=== PATIENT | female | born 1950 | race Caucasian/White ===

== ENCOUNTER 2018-10-18 11:24 | Inpatient (IN) ==
--- NOTE | 2018-10-18 13:30 | Diag Imaging Result Doc PS360 ---
EXAM: CHEST-2 VIEWS 10/18/2018 HISTORY: sob TECHNIQUE: AP upright and lateral chest COMMENT: There is alveolar opacity in both lower lobes particularly the left lower lobe. This was not the case on 10/15/2017. IMPRESSION: Pulmonary edema and/or pneumonia. Electronically signed by John Abdul 10/18/2018 1:28 PM
[2018-10-18 13:37] LABS: ESTIMATED GFR > 60
[2018-10-18 13:44] LABS: AGAP 11; ALBUMIN 2.7 g/dL (3.5-5.0); ALKALINE PHOSPHATASE 411 U/L (32-104); BUN 23 mg/dL (8-22); CALCIUM 8.8 mg/dL (8.8-10.2); CHLORIDE 101 mmol/L (98-107); COSMO 272; CREATININE 0.6 mg/dL (0.5-0.9); GLUCOSE 96 mg/dL (70-104); GOT 232 U/L (10-30); GPT 152 U/L (10-36); MAGNESIUM 1.9 mg/dL (1.5-2.7); PHOSPHORUS 2.5 mg/dL (2.7-4.5); SODIUM 134 mmol/L (136-145); TCO2 22 mmol/L (25-35); TOTAL BILIRUBIN 0.35 mg/dL (0.20-1.00); TOTAL PROTEIN 5.3 g/dL (6.3-8.3)
[2018-10-18] MEDS ORDERED: NS 1,000 ML IV ONE (14:17)
[2018-10-18] MEDS ORDERED: CALCIUM GLUCONATE IV PUSH ONE (14:19)
[2018-10-18] MEDS ORDERED: D50W SYRINGE IV ONE (14:20)
[2018-10-18] MEDS ORDERED: HUMULIN R SUBQ ONE (14:20)
[2018-10-18] MEDS ORDERED: ROCEPHIN 1 GM in NS 50 ML IV ONE (14:21)
--- NOTE | 2018-10-18 14:21 | PROVIDER DOCUMENTATION ---
HPI-Respiratory General - General Chief Complaint: Shortness of Breath Stated Complaint: WEAKNESS Time Seen by Provider: 10/18/18 12:48 Source: family Allergies/Adverse Reactions: Patient Allergies Allergy/AdvReac Type Severity Reaction Status Date / Time codeine Allergy Severe ANAPHYLAXIS Verified 10/14/17 22:19 pyrazinamide Allergy Mild HIVES Verified 10/14/17 22:19 meperidine HCl * Allergy Unknown Verified 10/14/17 22:19 [From Demerol] morphine Allergy Unknown Verified 10/14/17 22:19 pseudoephedrine HCl * AdvReac Severe AGITATION Verified 10/14/17 22:19 [From Actifed] triprolidine HCl * AdvReac Severe AGITATION Verified 10/14/17 22:19 [From Actifed] ascorbic acid AdvReac Unknown Verified 10/14/17 22:19 VITAMIN C Allergy Severe ANAPHYLAXIS Uncoded 10/14/17 22:19 Home Medications: Home Medication List Medication Instructions Recorded Confirmed Last Taken Type Abatacept [Orencia] 500 mg SQ DIRECTED 11/17/15 10/14/17 12/04/15 History Cyanocobalamin (Vitamin B-12) 1,000 mcg IJ DIRECTED 11/17/15 10/14/17 History [Cyanocobalamin Injection] Diazepam [Valium] 2 mg PO BID 11/17/15 10/14/17 12/23/15 History Flurazepam [Dalmane] 15 mg PO QHS 11/17/15 10/14/17 12/23/15 History Folic Acid 1 mg PO DAILY 11/17/15 10/14/17 12/24/15 History Gabapentin E.r. [Gralise] 300 mg PO DAILY 11/17/15 10/15/17 12/24/15 History Leucovorin Calcium 5 mg PO DIRECTED 11/17/15 10/14/17 12/21/15 History Methocarbamol [Robaxin-750] 750 mg PO Q6H PRN 11/17/15 10/14/17 12/24/15 History Methotrexate 3 tab PO DIRECTED 11/17/15 10/15/17 12/21/15 History Vit C/Vit E/Lutein/Min/[place]-3 1 each PO DAILY 11/17/15 10/14/17 12/24/15 History [Ocuvite Softgel] Vitamin E (Dl,Tocopheryl Acet) 400 unit PO BID 11/17/15 10/14/17 12/24/15 History [Vitamin E] Gabapentin 200 mg PO BID 10/15/17 10/15/17 Unknown History Montelukast [Singulair] 10 mg PO QPM 10/15/17 10/15/17 Unknown History Ondansetron Odt [Zofran 4 mg Odt] 4 mg PO Q6H PRN PRN #20 tab 10/15/17 Unknown Rx Oseltamivir [Tamiflu] 75 mg PO BID #10 cap 10/15/17 Unknown Rx Oseltamivir [Tamiflu] 75 mg PO BID #8 cap 10/16/17 Unknown Rx - History of Present Illness-Resp Nature of Presenting Problem: family reports that pt has been declining last 2 days since the last fall on Friday. she saw her pcp and given hydrocodone. reports that she has dry cough, fever intermittent, and weakness, Review of Systems - Adult - REVIEW OF SYSTEMS - ADULT Constitutional: reports: see HPI Eyes: reports: no symptoms reported Ears, Nose, Mouth & Throat: reports: no symptoms reported Cardiovascular: reports: no symptoms reported Respiratory: reports: no symptoms reported Gastrointestinal: reports: no symptoms reported Genitourinary: reports: no symptoms reported Musculoskeletal: reports: no symptoms reported Integumentary: reports: no symptoms reported Neurological: reports: no symptoms reported Psychiatric: reports: no symptoms reported Endocrine: reports: no symptoms reported Hematologic/Lymphatic: reports: no symptoms reported Allergic/Immunologic: reports: no symptoms reported All Other Systems: Reviewed and Negative Past History - Adult - PAST MEDICAL HISTORY-ADULT Review of Records: reports: Old Records Reviewed, Nursing Assessment Review, Medications Reviewed, Social history reviewed & non-contributory. Major Childhood Illnesses: reports: denies history Cardiovascular: reports: murmur Respiratory: reports: denies history Gastrointestinal: reports: GERD Obstetrical/Gynecological: reports: denies history Genitourinary: reports: kidney disease (mild chronic kidney disease), kidney stones Musculoskeletal: reports: arthritis (RA), osteoporosis Neurological: reports: denies history Endocrine/Immune: reports: anemia (iron deficiency) Other Conditions: reports: denies history Additional History: insomnia - PRIOR SURGERIES/PROCEDURES Surgical/Procedure History: reports: cholecystectomy (cystoscopy), hysterectomy , orthopedic (extremity) (R shoulder, R hip x3, L knee x3, R knee, wilver feet, ), other (R shoulder, R hip x3, L knee x3, R knee, wilver feet, cystoscopy, cataract sx) - PRIOR HOSPITALIZATIONS Prior Hospitalizations: reports: for other non-related - IMMUNIZATION STATUS Childhood Immunizations: See Nurse Assessment Flu Vaccine: See Nurse Assessment - FAMILY HISTORY Family History: reviewed, not pertinent - SOCIAL HISTORY Smoking: denies Substance Use: none/never Alcohol Use Frequency: never Living Situation: family Physical Exam-General - PHYSICAL EXAM-ADULT Initial Vital Signs Reviewed: Yes - CONSTITUTIONAL General Appearance: alert, lethargic - EYES Eyes: PERRL/EOMI, pink conjunctivae - HEAD, EARS, NOSE, MOUTH & THROAT HENMT: normocephalic/atraumatic, other (dry mucous membranes) - NECK Neck: non-tender, full range of motion - RESPIRATORY Respiratory: chest non-tender, lungs clear, crackles - CARDIOVASCULAR Cardiovascular: normal peripheral pulses, regular rate, rhythm, no edema, other (murmur) - GASTROINTESTINAL (ABDOMEN) Abdominal Exam: normal bowel sounds, non tender, soft - MUSCULOSKELETAL Back Exam: normal inspection, no CVA tenderness Extremity: normal range of motion - SKIN Integumentary: normal color, warm/dry - NEUROLOGIC Neurologic: grossly normal, no motor/sensory deficits - PSYCHIATRIC Psych/Mental Status: normal thought content, normal thought process, oriented x 3 Progress - PLAN OF CARE/RESULTS Progress/Plan/Lab Results: Vital Signs - 8 hr 10/18/18 11:33 10/18/18 12:25 10/18/18 12:29 Temperature 98.7 F Pulse Rate 110 H 96 H 95 H Respiratory Rate 18 21 18 Blood Pressure 111/60 101/58 101/58 O2 Sat by Pulse Oximetry 95 92 L 92 L Laboratory Results - last 24 hr 10/18/18 10/18/18 12:20 12:20 WBC Cancelled RBC Cancelled Hgb Cancelled Hct Cancelled MCV Cancelled MCH Cancelled MCHC Cancelled RDW Std Deviation Cancelled Plt Count Cancelled MPV Cancelled Immature Gran % (Auto) Cancelled Neut % (Auto) Cancelled Lymph % (Auto) Cancelled [place] % (Auto) Cancelled Eos % (Auto) Cancelled Baso % (Auto) Cancelled Immature Gran # (Auto) Cancelled Neut # (Auto) Cancelled Lymph # (Auto) Cancelled Pine # (Auto) Cancelled Eos # (Auto) Cancelled Baso # (Auto) Cancelled Corrected WBC (Man) Cancelled Sodium 134 L Potassium 6.0 H* Chloride 101 Carbon Dioxide 22 L Anion Gap 11 BUN 23 H Creatinine 0.6 Estimated GFR/1.73 m2 > 60 BUN/Creatinine Ratio 38 Glucose 96 Calculated Osmolality 272 Calcium 8.8 Phosphorus 2.5 L Magnesium 1.9 Total Bilirubin 0.35 AST 232 H ALT 152 H Alkaline Phosphatase 411 H Total Protein 5.3 L Albumin 2.7 L Globulin 2.6 Albumin/Globulin Ratio 1.0 Orders Category Date Time Status cxr [CHEST-2 VIEWS] [RAD] Stat Exams 10/18/18 13:04 Completed CBC WITH ELECTRONIC DIFF [HEME] Stat Lab 10/18/18 13:38 Ordered COMPREHENSIVE METABOLIC PANEL [CHEM] Stat Lab 10/18/18 12:20 Completed MAGNESIUM [CHEM] Stat Lab 10/18/18 12:20 Completed PHOSPHORUS [CHEM] Stat Lab 10/18/18 12:20 Completed 0.9% Sodium Chloride Inj [Ns] 1,000 ml Med 10/18/18 14:17 Active IV 999 mls/hr Calcium Gluconate Med 10/18/18 14:19 Discontinued 1 gm IV PUSH NOW ONE CefTRIAXONE [Rocephin] 1 gm Med 10/18/18 14:21 Discontinued 0.9% Sodium Chloride Inj [Ns] 50 ml IV NOW Dextrose 50% Syringe [D50w Syringe] Med 10/18/18 14:20 Discontinued 50 ml IV NOW ONE Insulin Human Regular [Humulin R] Med 10/18/18 14:20 Discontinued 10 unit SUBQ NOW ONE [facility] [address] [facility] [address], [place] [address] Department of Imaging Patient: JACOB MAX ADM Date: 10/18/18 MR#: [id number] : 1950 ADM Status: PRE ER Age/Sex: 68/F Room/Bed: Loc: ED Ordering Physician: Radha Guajardo MD Family Physician: Anthony Toledo MD Reason for Procedure: sob ___ Signed EXAM: CHEST-2 VIEWS 10/18/2018 HISTORY: sob TECHNIQUE: AP upright and lateral chest COMMENT: There is alveolar opacity in both lower lobes particularly the left lower lobe. This was not the case on 10/15/2017. IMPRESSION: Pulmonary edema and/or pneumonia. Electronically signed by John Abdul 10/18/2018 1:28 PM 10/18/18 1328 Interpreting Physician: John Abdul MD Dictated Date/Time: 10/18/18 1328 cc: Radha Guajardo MD; Anthony Toledo MD Result Diagrams: 10/18/18 12:20 10/18/18 12:20 - CONSULTS/PCP/HOSPITALIST Notification #1 *Consult/PCP/Hospitalist*: Dr. Lennon Time Discussed: 15:17 (hyperkalemia, PNA b/l, hypoxia) Consult Disposition: Admit Departure - Departure Date of Disposition Decision: 10/18/18 Time of Disposition Decision: 15:20 DIAGNOSIS: Pneumonia, Hyperkalemia Disposition: ADMITTED INPATIENT 09 Certified Medical Emergency: Emergent Condition: Stable Referrals and Follow-Ups: Anthony Toledo MD [Primary Care Provider] - Call for Appoint. 1-2days - Critical Care Note This patient required my direct & personal management of CC.: Yes Total Time (mins): 31 Critical Care Statement: This patient required my direct personal management to treat or rule out processes, the absence of which, could potentiallly result in sudden, clinically significant life or limb threatening deterioration. Attestation - Physician/ GLENYS Attestation Patient care was provided by Advanced Practice Provider:: No The physician spent face to face time with patient:: Yes Advanced Practice Provider documentation review:: Supervising physician onsite and consulted in the evaluation and care of this patient. The physician did have a face to face encounter with the patient.
--- NOTE | 2018-10-18 14:21 | ED EKG INTERP ---
This chart was entered by Radha Paris Scribe, acting as scribe for Radha Guajardo MD. EKG Interpretation - EKG Time of EKG reading by physician:: 11:40 EKG Read and Signed by:: Radha Guajardo (v) EKG Interpretation (*Must complete 3 of following elements*): Abnormal Rate: 106 Rhythm: sinus tachycardia [place]: normal QRS: normal Attestation - Physician/ GLENYS Attestation Patient care was provided by Advanced Practice Provider:: No The physician spent face to face time with patient:: Yes Advanced Practice Provider documentation review:: Supervising physician onsite and consulted in the evaluation and care of this patient. The physician did have a face to face encounter with the patient. This chart was documented by the indicated scribe, (Radha Paris Scribe) and accurately reflects the services I performed and decisions made by me, Radha Guajardo MD, as attested by the provider's signature.
[2018-10-18] MEDS ORDERED: LEVAQUIN 500 MG/D5W 500 MG/100 ML IVPB IV SCH ×2 (16:00→18:00)
[2018-10-18 16:11] LABS: BASO# 0.03 X1000 (0.0-0.2); BASO% 0.1 % (0.0-0.8); EOS# 0.02 X1000 (0.0-0.7); EOS% 0.1 % (0.0-10.0); HEMATOCRIT 25.3 % (37.0-47.0); HEMOGLOBIN 7.8 g/dL (12.0-16.0); IMM GRAN# 0.14 X1000 (0.0-0.04); IMM GRAN% 0.7 % (0.0-0.5); LYMPH# 0.76 X1000 (1.2-3.4); LYMPH% 3.7 % (20.5-51.1); MCH 28.3 PG (27-31); MCHC 30.8 g/dL (33-37); MCV 91.7 FL (81-99); MONO# 1.28 X1000 (0.11-0.59); MONO% 6.2 % (1.7-9.3); MPV 8.9 FL (7.4-10.4); NEUT# 18.39 X1000 (1.4-6.5); NEUT% 89.2 % (42.2-75.2); PLT 613 X1000 (130-400); RBC 2.76 XMIL (4.2-5.4); RDW 17.4 % (11.5-14.5); WBC 20.62 X1000 (4.8-10.8)
[2018-10-18] MEDS: DUONEB (A & A) INH SCH ×2 (17:21→22:22)
[2018-10-18] MEDS ORDERED: SODIUM CHLORIDE 0.9% INJ PRN (17:21)
--- NOTE | 2018-10-18 17:32 | Diag Imaging Result Doc PS360 ---
EXAM: CHEST-PORTABLE 10/18/2018 HISTORY: central line placement TECHNIQUE: AP portable at 1719 COMMENT: There is a left internal jugular central venous catheter with its tip in the superior vena cava. There is alveolar opacity in both lower lobes. This is somewhat worse in the right lower lobe than on the previous study of 10/18/2018 at 1326. IMPRESSION: Pulmonary edema and/or pneumonia. Electronically signed by John Abdul 10/18/2018 5:29 PM
[2018-10-18] MEDS ORDERED: ZOSYN 4.5 GM in NS 100 ML IV SCH (18:00)
[2018-10-18] MEDS ORDERED: NARCAN ONE (18:24)
[2018-10-18] MEDS ORDERED: LASIX IV SCH (19:00)
[2018-10-18] MEDS: LOVENOX SUBQ SCH (20:06)
--- NOTE | 2018-10-18 20:18 | HISTORY AND PHYSICAL ---
HISTORY OF PRESENT ILLNESS: Ms. Charleen Estrada is a 68-year-old lady who is followed as an outpatient by Dr. Anthony Toledo. She has a history of multiple medical problems, including severe debilitating rheumatoid arthritis on Orencia and methotrexate, chronic iron deficiency anemia, mild chronic renal insufficiency, osteoporosis and gastroesophageal reflux disease. She presented to the ER with a 3-day history of increasing shortness of breath, increasing work of breathing, hard shaking rigors, fever as high as 103 degrees, nausea vomiting and a cough productive of yellowish sputum. Her chest x-ray showed bilateral lower lobe infiltrates. The family reported that she has been more confused and disoriented and difficult to arouse at times. She has not been eating well. PAST MEDICAL HISTORY: As above. PAST SURGICAL HISTORY: Left total hip, cholecystectomy, bilateral cataract surgery. ALLERGIES: Codeine, meperidine, morphine. MEDICATIONS: Orencia 500 mg subcutaneous daily, B12 injections monthly, Valium 2 mg b.i.d., Dalmane 15 mg at bedtime p.r.n. insomnia, folic acid 1 mg daily, gabapentin 200 mg b.i.d., gabapentin ER 300 mg daily, Robaxin 750 mg q.6 hours, methotrexate 2.5 mg 3 tablets weekly, Singulair 10 mg daily. FAMILY HISTORY: Noncontributory. SOCIAL HISTORY: She is a former smoker. She does not consume alcoholic beverages. She lives at [facility] and requires full-time sitters. REVIEW OF SYSTEMS: She denies any recent weight gain or weight loss.HEENT: She wears glasses. Cardiovascular: No chest pain, palpitations or anginal equivalents. Pulmonary: See HPI. Endocrine: No polyuria, no polydipsia. No cold or heat intolerance. Gastrointestinal: See HPI. Genitourinary: No leakage of urine with coughing or laughing. Skin: No easy bruisability. Neurologic: No migraines or seizures. PHYSICAL EXAMINATION: GENERAL: This is a chronically ill-appearing 68-year-old lady in mild distress secondary to shortness of breath. VITAL SIGNS: Temperature 103, current temperature 98.7, pulse 110, respirations 21, BP 111/60. HEENT: Fundi with sharp discs and vessels. Pupils equal, round, reactive to light. Extraocular eye movements intact. TMs without bullae. NECK: Supple. No masses, JVD or bruits. CARDIOVASCULAR: Tachycardic. Regular S1, S2. LUNGS: Diminished breath sounds in the bases bilaterally. ABDOMEN: Soft, nontender, with active bowel sounds. EXTREMITIES: She has multiple deformities of her hands and upper extremities. BREASTS, GYNECOLOGIC, RECTAL: Deferred. NEUROLOGIC: She is drowsy, but wakes up to verbal stimuli. She was oriented to name and place. She did answer questions somewhat appropriately. LABS: Various laboratory studies were obtained. A CBC demonstrated white count of 20.62, hemoglobin 7.8, hematocrit 25.3 and a platelet count of 613,000. Electrolytes demonstrate the following: Sodium 134, potassium 6.0, chloride 101, BUN 23, creatinine 0.6. AST 232, ALT 152, albumin 2.7. ASSESSMENT: 1. Metabolic encephalopathy. 2. Acute respiratory failure with hypoxia secondary to gram negative pneumonia with possible sepsis. 3. Immunocompromised state secondary to rheumatoid arthritis, on immunosuppressive suppressive drugs. 4. Hyperkalemia. 5. Anemia of chronic disease. 6. Transaminitis. PLAN: 1. I will admit the patient to [facility]. Because of her immunocompromised state she will need a private room. I will treat her with supplemental O2, DuoNeb nebulizer treatments and begin broad-spectrum antibiotics, including Zosyn and Levaquin, pending blood and sputum cultures. Because of the apparent gram-negative pneumonia I am going to hold her immunosuppressive drugs, including Orencia and methotrexate. I suspect that the confusion/disorientation is due to her underlying hypoxia as well as the underlying infection. She has markedly elevated liver enzymes. I am holding the immunosuppressive drugs, including methotrexate which can cause transaminitis. I will recheck liver function tests in the morning. If her liver function tests continued to trend upward, we will probably do further studies, including an ultrasound of the abdomen to better assess the liver. 2. Hyperkalemia. She was given Kayexalate as well as sodium gluconate and insulin in the ER. We will recheck a BMP in the morning. 3. Given her comorbid conditions and clinical presentation, I believe that admission to the hospital is absolutely necessary. To attempt to treat her as an outpatient would dramatically increase the risk for adverse outcomes such as sudden . I anticipate that the patient will be in the hospital for at least 2 midnights and I will therefore place her on inpatient status. I will begin Lovenox 40 mg subcutaneous daily for DVT prophylaxis. cc: Elizabeth Lennon MD
[2018-10-18] MEDS: TYLENOL PO PRN (20:24)
[2018-10-18] MEDS: NS 1,000 ML IV SCH (20:26)
[2018-10-18] MEDS ORDERED: RESTORIL PO SCH (21:00)
--- NOTE | 2018-10-18 21:22 | OPERATIVE NOTE ---
PROCEDURE DATE: 10/18/2018 PROCEDURE: Left internal jugular vein central venous line placement with ultrasound guidance. SURGEON: Dr. Alvarado. PREOP DIAGNOSIS: Chronic obstructive pulmonary disease and poor venous access. POSTOP DIAGNOSIS: Chronic obstructive pulmonary disease and poor venous access. DESCRIPTION OF PROCEDURE: The patient is placed in gentle Trendelenburg position. We imaged the left internal jugular vein. We found it to be patent. We then prepped and draped the left side of the neck in a sterile fashion. We anesthetized the skin with 1% lidocaine. Made a small stab incision then under ultrasound guidance accessed the left internal jugular vein. We passed the guidewire without difficulty. We then dilated the tract and then passed the triple-lumen catheter to about 17 18 cm. Blood came back in each lumen spontaneously. We flushed each lumen with saline. We secured the flange to the skin with a 3-0 silk. A Biostep patch was placed at the exit site. A sterile OpSite dressing was applied. She tolerated it well. A chest x-ray was ordered. cc: MD Elizabeth Weston MD
[2018-10-18] MEDS: SINGULAIR PO SCH (22:49)
[2018-10-18] MEDS: ZOSYN 4.5 GM in NS 100 ML IV SCH (22:49)
[2018-10-18] MEDS ORDERED: NS 250 ML IV ONE (23:59)
[2018-10-19] MEDS: NS 1,000 ML IV SCH ×4 (01:09→23:18)
[2018-10-19] MEDS ORDERED: LEVOPHED 8 MG in D5 1/2 NS 250 ML IV SCH ×2 (01:30→03:45)
[2018-10-19] MEDS ORDERED: VANCOMYCIN IV PER PHARMACY MISC SCH (01:30)
[2018-10-19] MEDS ORDERED: BENADRYL PO ONE ×2 (01:35→03:36)
[2018-10-19] MEDS: ZOSYN 4.5 GM in NS 100 ML IV SCH ×2 (02:39→08:34)
[2018-10-19] MEDS: DUONEB (A & A) INH SCH ×4 (03:13→22:20)
--- NOTE | 2018-10-19 03:21 | PROGRESS NOTE ---
DATE: 10/19/2018 SUBJECTIVE: I was called to see Ms. Estrada this morning. She was admitted to [facility] with a metabolic encephalopathy secondary to acute respiratory failure with hypoxia secondary to gram-negative pneumonia with sepsis. She is an immunocompromised host as she is on multiple immunosuppressive drugs due to her underlying rheumatoid arthritis. She had a leukocytosis of 20,000. She was tachycardic and tachypneic. Her lactate was 2.3. She had been started on Levaquin and Zosyn. Her blood pressure was low. When we gave her a fluid bolus, her blood pressure came up to 88/41. OBJECTIVE: Vital Signs: Temperature 98.2 degrees, pulse 97, respirations 20, BP 88/41. CV: Tachycardic. Regular S1, S2. Lungs: Diminished breath sounds in the bases bilaterally. Abdomen: Soft, nontender, with active bowel sounds. Extremities: Without edema. ASSESSMENT AND PLAN: 1. Metabolic encephalopathy secondary to acute respiratory failure with gram- negative pneumonia in an immunocompromised host in association with sepsis. Her blood pressure is low. We did give her a fluid bolus. Given the pulmonary edema, I am reticent to give her additional fluids. We will continue broad-spectrum antibiotics including Zosyn and Levaquin. I will also bolus her with vancomycin, given a history of methicillin-resistant Staphylococcus aureus. We will transfer her to the unit where I will initiate a Levophed drip. She is mildly anemic with a hemoglobin and hematocrit of 7.5 and 25. I will type, crossmatch, and transfuse 1 unit of packed red blood cells to help with volume as well as oxygenation. 2. I called her daughter and fully updated her on her mother's condition and plan of care. She voiced understanding of my concerns and I answered all of her questions. cc: Elizabeth Lennon MD [facility]
[2018-10-19] MEDS ORDERED: MISC. PHARMACY COMMUNICATION SCH (03:45)
[2018-10-19 03:56] LABS: BASO# 0.02 X1000 (0.0-0.2); BASO% 0.1 % (0.0-0.8); HEMATOCRIT 23.2 % (37.0-47.0); HEMOGLOBIN 7.3 g/dL (12.0-16.0); IMM GRAN% 2.6 % (0.0-0.5); LYMPH# 0.68 X1000 (1.2-3.4); LYMPH% 2.9 % (20.5-51.1); MCH 28.3 PG (27-31); MCHC 31.5 g/dL (33-37); MCV 89.9 FL (81-99); MONO# 1.81 X1000 (0.11-0.59); MONO% 7.8 % (1.7-9.3); MPV 9.1 FL (7.4-10.4); NEUT# 20.11 X1000 (1.4-6.5); NEUT% 86.6 % (42.2-75.2); PLT 610 X1000 (130-400); RBC 2.58 XMIL (4.2-5.4); WBC 23.22 X1000 (4.8-10.8)
[2018-10-19] MEDS ORDERED: VANCOMYCIN 1,450 MG in NS 250 ML IV ONE (04:00)
[2018-10-19 04:18] LABS: AGAP 12; ALB/GLOB RATIO 0.8; ALBUMIN 2.4 g/dL (3.5-5.0); ALKALINE PHOSPHATASE 342 U/L (32-104); BUN 18 mg/dL (8-22); CALCIUM 9.1 mg/dL (8.8-10.2); CHLORIDE 103 mmol/L (98-107); COSMO 279; CREATININE 0.6 mg/dL (0.5-0.9); ESTIMATED GFR > 60; GLUCOSE 117 mg/dL (70-104); GOT 71 U/L (10-30); GPT 104 U/L (10-36); POTASSIUM 4.8 mmol/L (3.5-5.1); SODIUM 138 mmol/L (136-145); TCO2 23 mmol/L (25-35); TOTAL BILIRUBIN 0.39 mg/dL (0.20-1.00); TOTAL PROTEIN 5.6 g/dL (6.3-8.3)
[2018-10-19 05:03] LABS: BANDS 2 % (0-1); LYMPHS 4 % (21-51); SEGS 94 % (42-75)
[2018-10-19] MEDS: TYLENOL PO PRN ×2 (05:11→15:25)
[2018-10-19] MEDS: FOLIC ACID PO SCH (08:34)
[2018-10-19] MEDS: ZYVOX PO SCH ×2 (09:15→20:04)
[2018-10-19] MEDS: MAXIPIME 1 GM in NS 50 ML IV SCH ×2 (09:15→17:57)
--- NOTE | 2018-10-19 09:38 | PROGRESS NOTE ---
DATE: 10/19/2018 SUBJECTIVE: The patient is awake and alert and answers questions appropriately. She was able to review the history with me and seems lucid. She complains of being wet. IVs were checked for leaks and actually, she had just had a hard shaking chill earlier and was soaked with sweat. OBJECTIVE: Vital signs: 98.4, 88, 22, 110/71. Fluid balance is listed as negative 430. Lungs: The patient has crackles in the right base. The left side seems reasonably clear to me. She has good air movement. She is very slightly tachypneic, but not struggling to breathe and is able to speak in full sentences. Neuropsych: The patient is alert, oriented, conversive, and appropriate. Cardiovascular: Regular rhythm at approximately 80 beats per minute at the time of my examination. Extremities: Her joints are severely deformed from chronic rheumatoid arthritis. LABORATORY: White cell count 23.2, hematocrit 23.2, platelet count 610,000. Potassium is down to 4.8, BUN 18, creatinine 0.6. Liver function tests are still elevated, but less so than at admission. ASSESSMENT AND PLAN: 1. The patient had infiltrative process on x-ray and high spiking fevers. She is being treated for pneumonia. I have changed her antibiotic to increase gram-negative and staphylococcus coverage. We will discontinue Zosyn and levofloxacin as well as vancomycin. I have put her on Zyvox and cefepime. The dose of the cefepime has been slightly adjusted due to her size and overall creatinine. We will continue respiratory treatments and monitoring. 2. The patient is anemic. She received a transfusion of 1 unit of packed cells this morning. We will recheck this in the morning and transfuse as necessary. We will need to Hemoccult her stools. 3. Patient's hyperkalemia has been addressed. We will recheck this again in the morning. 4. We will continue to monitor the patient's transaminase elevation. 5. The patient continues to require intensive care unit care due to her immunocompromised state and severe illness. cc: MD Elizabeth Roman MD
--- NOTE | 2018-10-19 10:41 | EKG Report ---
Test Performed on : 10/18/2018 11:31:34 AM Test Reason : ED. NO EKG ORDER FOR MUSE Blood Pressure : / mmHG Vent. Rate : 106 BPM Atrial Rate : 106 BPM P-R Int : 184 ms QRS Dur : 086 ms QT Int : 312 ms P-R-T Axes : 057 005 063 degrees QTc Int : 414 ms Sinus tachycardia. Otherwise normal ECG When compared with ECG of 14-OCT-2017 22:35, No significant change was found Unconfirmed Result
--- NOTE | 2018-10-19 11:28 | EKG Report ---
Test Performed on : 10/19/2018 10:26:19 AM Test Reason : Blood Pressure : / mmHG Vent. Rate : 093 BPM Atrial Rate : 093 BPM P-R Int : 210 ms QRS Dur : 096 ms QT Int : 354 ms P-R-T Axes : 056 003 055 degrees QTc Int : 440 ms Sinus rhythm. with 1st degree AV block. Otherwise normal ECG When compared with ECG of 18-OCT-2018 11:31, (Unconfirmed) No significant change was found Confirmed by Gary CHANDRA, Praful Brown ([id number]) on 10/19/2018 10:25:50 PM
[2018-10-19] MEDS: LOVENOX SUBQ SCH (16:51)
[2018-10-19] MEDS: SINGULAIR PO SCH (20:04)
[2018-10-19] MEDS ORDERED: BLISTEX MEDICATED BERRY LIP BALM TOP ONE (21:18)
[2018-10-20] MEDS: PHENERGAN IV PRN ×2 (00:06→06:39)
[2018-10-20] MEDS: MAXIPIME 1 GM in NS 50 ML IV SCH ×3 (02:09→18:24)
[2018-10-20] MEDS: DUONEB (A & A) INH SCH ×4 (03:40→22:06)
[2018-10-20 05:31] LABS: BASO# 0.01 X1000 (0.0-0.2); EOS# 0.01 X1000 (0.0-0.7); HEMATOCRIT 24.1 % (37.0-47.0); HEMOGLOBIN 7.8 g/dL (12.0-16.0); LYMPH# 0.84 X1000 (1.2-3.4); LYMPH% 3.8 % (20.5-51.1); MCH 28.7 PG (27-31); MCHC 32.4 g/dL (33-37); MCV 88.6 FL (81-99); MONO# 1.61 X1000 (0.11-0.59); MONO% 7.3 % (1.7-9.3); MPV 9.4 FL (7.4-10.4); NEUT# 19.53 X1000 (1.4-6.5); NEUT% 88.9 % (42.2-75.2); PLT 600 X1000 (130-400); RBC 2.72 XMIL (4.2-5.4); RDW 17.5 % (11.5-14.5)
[2018-10-20 06:00] LABS: AGAP 11; ALB/GLOB RATIO 0.7; ALBUMIN 2.2 g/dL (3.5-5.0); ALKALINE PHOSPHATASE 262 U/L (32-104); BUN 16 mg/dL (8-22); CALCIUM 8.1 mg/dL (8.8-10.2); CHLORIDE 104 mmol/L (98-107); COSMO 272; CREATININE 0.5 mg/dL (0.5-0.9); ESTIMATED GFR > 60; GLUCOSE 115 mg/dL (70-104); GOT 35 U/L (10-30); GPT 71 U/L (10-36); POTASSIUM 4.4 mmol/L (3.5-5.1); SODIUM 135 mmol/L (136-145); TCO2 20 mmol/L (25-35); TOTAL BILIRUBIN 0.19 mg/dL (0.20-1.00); TOTAL PROTEIN 5.3 g/dL (6.3-8.3)
[2018-10-20] MEDS ORDERED: LASIX IV ONE (09:07)
[2018-10-20] MEDS ORDERED: VANCOMYCIN 1,150 MG in NS 250 ML IV SCH (10:00)
[2018-10-20] MEDS: ZYVOX PO SCH ×2 (10:13→20:35)
[2018-10-20] MEDS: FOLIC ACID PO SCH (10:13)
[2018-10-20] MEDS: NS 1,000 ML IV SCH ×2 (10:14→20:35)
[2018-10-20] MEDS: TYLENOL PO PRN ×2 (15:18→22:03)
[2018-10-20] MEDS ORDERED: NS 50 ML ONE (18:24)
[2018-10-20] MEDS: LOVENOX SUBQ SCH (18:25)
[2018-10-20] MEDS: SINGULAIR PO SCH (20:36)
[2018-10-20] MEDS: VALIUM PO PRN (23:34)
[2018-10-21] MEDS: DUONEB (A & A) INH SCH ×4 (03:21→21:52)
[2018-10-21] MEDS: MAXIPIME 1 GM in NS 50 ML IV SCH ×3 (03:25→20:02)
--- NOTE | 2018-10-21 03:44 | PROGRESS NOTE ---
DATE: 10/21/2018 SUBJECTIVE: The patient states that she feels better this morning. She stated emphatically, "I do not think I am going to ." She had eaten reasonably well, given her lack of appetite over the previous day, and said that she was less short of breath. OBJECTIVE: Vital Signs: T-max was 100.1 degrees. At the time of my examination, the patient's temperature was 98.6 degrees, pulse rate of 95, respirations were measured at 23, blood pressure 153/71, 94% saturated on nasal cannula. Fluid balance was more than 2 L positive. Physical Examination: Respiratory: The patient still had some coarse breath sounds on the right side. She was not overtly wheezing. She was moving air fairly well. She was not as tachypneic as the previous day. Neck Examination: No JVD. Extremities: The patient has stage IV rheumatoid arthritis. Cardiovascular: Regular. Laboratories: White cell count was 22,000, hemoglobin 7.8, hematocrit 24.1, platelet count 600,000. Sodium was 135, carbon dioxide was 20, BUN 16, creatinine 0.5. Liver function tests were lower than the previous day. ASSESSMENT AND PLAN: 1. The patient has an infiltrative process on x-ray. Continues to have spiking fevers. She is being treated for pneumonia with cefepime and Zyvox. She is getting respiratory treatments and tolerating this reasonably well. The possibility of viral pneumonia cannot be excluded. 2. The patient was transfused yesterday. She remains anemic. We will continue to monitor this and transfuse as appropriate. 3. White cell count is still markedly elevated. 4. Hyperkalemia has corrected. She has a low bicarb which may be indicative of the seriousness of her illness. 5. Transaminases are trending downward. 6. The patient continues to require intensive care unit intervention with this severe illness. 7. I plan to consult Dr. Brandan Dean in the morning for his help with this infectious process. cc: MD Elizabeth Roman MD
[2018-10-21] MEDS: PHENERGAN IV PRN ×2 (03:49→15:45)
[2018-10-21] MEDS: TYLENOL PO PRN ×4 (04:05→20:01)
[2018-10-21 06:39] LABS: BASO# 0.01 X1000 (0.0-0.2); BASO% 0.1 % (0.0-0.8); EOS# 0.09 X1000 (0.0-0.7); EOS% 0.6 % (0.0-10.0); HEMATOCRIT 25.3 % (37.0-47.0); IMM GRAN# 0.29 X1000 (0.0-0.04); IMM GRAN% 1.8 % (0.0-0.5); LYMPH# 0.64 X1000 (1.2-3.4); LYMPH% 3.9 % (20.5-51.1); MCH 27.5 PG (27-31); MCHC 31.6 g/dL (33-37); MCV 86.9 FL (81-99); MONO# 1.35 X1000 (0.11-0.59); MONO% 8.3 % (1.7-9.3); MPV 9.4 FL (7.4-10.4); NEUT# 13.91 X1000 (1.4-6.5); NEUT% 85.3 % (42.2-75.2); PLT 597 X1000 (130-400); RBC 2.91 XMIL (4.2-5.4); RDW 17.5 % (11.5-14.5); RETIC-HE 19.3 PG (28.2-36.6); WBC 16.29 X1000 (4.8-10.8)
[2018-10-21 06:57] LABS: AGAP 8; ALB/GLOB RATIO 0.7; ALBUMIN 2.2 g/dL (3.5-5.0); ALKALINE PHOSPHATASE 224 U/L (32-104); BUN 16 mg/dL (8-22); CALCIUM 7.9 mg/dL (8.8-10.2); CHLORIDE 108 mmol/L (98-107); COSMO 278; CREATININE 0.6 mg/dL (0.5-0.9); ESTIMATED GFR > 60; GLUCOSE 117 mg/dL (70-104); GOT 35 U/L (10-30); GPT 56 U/L (10-36); IRON SATURATION 14 %; POTASSIUM 3.8 mmol/L (3.5-5.1); SODIUM 138 mmol/L (136-145); TCO2 22 mmol/L (25-35); TIBC 117 ug/dL; TOTAL BILIRUBIN 0.21 mg/dL (0.20-1.00); TOTAL IRON 16 ug/dL (49-151); TOTAL PROTEIN 5.4 g/dL (6.3-8.3); UNBOUND IRON 101 ug/dL (112-346)
[2018-10-21] MEDS: NS 1,000 ML IV SCH ×2 (07:18→16:51)
[2018-10-21 07:35] LABS: LYMPHS 10 % (21-51); MONO 6 % (1-9); SEGS 84 % (42-75)
--- NOTE | 2018-10-21 07:46 | Diag Imaging Result Doc PS360 ---
EXAM: CHEST-PORTABLE INDICATION: cough TECHNIQUE: One view COMPARISON: 10/18/2018 FINDINGS: The left central line is in stable position. Bibasilar consolidations persist. However, there does appear to be marginal improvement on the right. No new consolidation is identified. Cardiac silhouette is stable. IMPRESSION: Marginal improvement on the right. Stable chest, otherwise. Electronically signed by Hudson Hernández 10/21/2018 7:44 AM
[2018-10-21] MEDS: FOLIC ACID PO SCH (08:37)
[2018-10-21] MEDS: VALIUM PO PRN (08:37)
[2018-10-21] MEDS: ZYVOX PO SCH ×2 (08:37→20:01)
--- NOTE | 2018-10-21 09:49 | PROGRESS NOTE ---
DATE: 10/21/2018 SUBJECTIVE: The patient states that she had a rough night, that she had some back pain. She continued to have spiking fevers. Overall, she seems to not be able to catch her breath as well as the previous day. OBJECTIVE: Vital Signs: Temperature 99.0 degrees at last measurement. Last blood pressure was 157/88, pulse 94, respirations 24. She is on 4 L nasal cannula, 99% saturated. General: The patient is alert, oriented, conversant, and appropriate. Lungs: Show some coarse breath sounds and a little bit of crackling in the right middle and right lower lobe distributions. There is no leonid wheezing. Air movement is good. Left side seems generally clearer on my examination. Cardiovascular: Regular at approximately 88 beats per minute at the time my examination. Extremities: There is no peripheral edema in the dependent areas. She has stage IV rheumatoid changes. LABORATORY DATA: White cell count is down to 16.2. Hemoglobin up slightly at 8.0. Platelet count 597,000. BUN 16, creatinine 0.6. Bicarb is still low at 22. Liver function tests continue their downward trend. ASSESSMENT AND PLAN: 1. Chest x-ray today still shows infiltrative processes on both sides. She continues to have spiking fevers. She is on cefepime and Zyvox, and getting respiratory treatments. I have consulted Dr. Brandan Dean this morning and I have consulted Dr. Florentin Elder for their help. Although any signs of recovery are evident, she still remains tachypneic and having spiking fevers. 2. Hemoglobin is stable. Iron stores appear adequate. 3. White cell count is down considerably, but still abnormal. 4. Transaminases continue their downward trend. 5. The patient continues to require intensive care unit intervention for management of her difficulty. cc: MD Elizabeth Roman MD
[2018-10-21] MEDS: CELEBREX PO SCH (10:04)
--- NOTE | 2018-10-21 10:10 | INFECTIOUS DISEASE CONSULT REP ---
DATE: 10/21/2018 CONCLUSION: The patient is admitted to the hospital with a bibasilar pneumonia. Based on the fact that her x-ray is improved, her white count is coming down, and the patient says that she is feeling better, I think most likely she has a bacterial pneumonia and it is responding to the antibiotic treatment that Dr. Toledo ordered. The patient, however, does say that she has been sick for months and coughing for months, and I think she also could have an infection with an agent that can cause prolonged illness, namely a fungus or acid-fast organism. Also, I think it is a possibility the patient has an immunoglobulin deficiency, which might be causing her to have recurrent infections. The patient has a large left knee prepatellar bursal sac. This has been present for a long time. It is not tender, is not red, and the patient states that she does not think it is infected and I agree with her. RECOMMENDATIONS: I agree with the current antibiotic therapy initiated by Dr. Toledo, namely cefepime and Zyvox. I have ordered sputums for acid-fast and fungal culture. Also, I have ordered immunoglobulin levels. The patient does have a large prepatellar bursa, which seems to be full of fluid, but because I do not think it is infected and the patient does not think it is infected, I am not going to draw fluid off of it. The patient said she has had this for approximately 10 years and actually it has gotten smaller than it had been previously. I have also ordered a sputum for Gram stain and culture. DISCUSSION: The patient tells me that in mid September, she had cellulitis and before that she had pneumonia. Her coughing and shortness of breath have continued now to the present, even though the cellulitis has gotten better. LABORATORY STUDIES: CBC shows a white count of 16,290, hemoglobin 8, and platelet count 597,000. The patient's creatinine is 0.6. GFR is greater than 60. Alkaline phosphatase 224. Blood cultures are negative. Swab for influenza is negative. DIAGNOSTIC STUDIES: Chest x-ray shows improvement in the patient's bibasilar consolidations. PAST MEDICAL HISTORY/REVIEW OF SYSTEMS: Eyes and Ears: The patient has decreased hearing. Her vision is okay. Bones, joints, muscles: She has swelling, especially of her hands, in the last few weeks. As mentioned above, she has a prepatellar bursal sac of the left knee. She does not have any other swollen joints. Her muscles are not aching. Endocrine: The patient does not have diabetes or thyroid disease. Respiratory: See present illness. Gastrointestinal: No nausea, vomiting, or diarrhea. Genitourinary: No dysuria or flank pain. Integument: No rashes. LIEUTENANT/DEPUTY History: She is a 1, para 1, AB 0. She has had a hysterectomy. PREVIOUS HOSPITALIZATIONS AND OPERATIONS: She has had labor and delivery, a hysterectomy, and a cholecystectomy. She has had a total of 16 surgeries on her joints and many of the joints were replaced. MEDICAL DISEASES: Positive for rheumatoid arthritis. INFECTIOUS DISEASE HISTORY: The patient has had pneumonia and urinary tract infection. FAMILY HISTORY: Positive for cancer, stroke, and osteoporosis. SOCIAL HISTORY: [place] She is . She lives at an assisted living facility. ALLERGIES: She is allergic to ascorbic acid, codeine, pyrazinamide, meperidine, morphine, and Actifed. HOME MEDICATIONS: Include Orencia, vitamin B12, Valium, Dalmane, gabapentin, leucovorin, Robaxin, methotrexate, Singulair, Zofran, Tamiflu, vitamin C, vitamin E. PHYSICAL EXAMINATION: Vital Signs: Temperature 99 degrees, pulse 94, respirations 25, blood pressure 157/88. The patient is 5 feet 6 inches tall and weighs 122 pounds. General: This is an ill-appearing elderly female. She is currently in no acute distress. Head, Eyes, Ears, Nose, Throat: She can hear my spoken words and see near objects. She does not have any white patches on her tongue. Sinuses are not tender. Neck: No meningismus. Lungs: Clear to auscultation. Cardiovascular: Heart rate is regular. Abdomen: Soft, nontender. Bones, joints, muscles: Both hands are swollen. The patient has a large prepatellar bursa on the left knee. Her joints are not painful with movement. Neurologic: The patient is alert. She can move her extremities. There is no tremor. Her memory as regarding her medical history is intact. Thank you for the consult. cc: MD Elizabeth Campo MD
--- NOTE | 2018-10-21 14:02 | PULMONOLOGY CONSULTATION ---
DATE: 10/21/2018 REASON FOR CONSULTATION: Pneumonia with respiratory failure. HISTORY OF PRESENT ILLNESS: Ms. Estrada is a 68-year-old white female with severe rheumatoid arthritis, chronic immunosuppression on methotrexate and Orencia, who had a fall last week, who has had a prior episode of aspiration pneumonia by patient's report, several years ago. She did undergo an open lung biopsy and food particles were identified. The patient presented to the emergency room with variable time frame on worsening in her symptoms, but she had had increased cough, intermittent fevers, and increasing shortness of breath. She had fevers during this hospitalization as high as 101.3 degrees, but her temperature curve has been declining. Chest x- ray on admission revealed bibasilar infiltrates, which were not present 10/15/2018. She has been initiated on broad-spectrum antibiotics and her temperature curve and white blood count are decreasing. Clinically, she reports she feels better. PAST MEDICAL HISTORY/PROBLEM LIST: 1. Severe rheumatoid arthritis, on immunosuppression as per above. 2. Multiple joint replacements due to osteoarthritis and rheumatoid arthritis. 3. History of recurrent MRSA cellulitis, followed by Infectious Disease in [place]. 4. History of thyroid disease. 5. Status post hysterectomy. 6. Status post bladder surgery. 7. Status post jaw surgery. 8. Status post knee, foot, hip and shoulder surgeries. SOCIAL HISTORY: The patient has a 10-pack year history for tobacco. She denies significant alcohol use. FAMILY HISTORY: Noncontributory to current presentation. REVIEW OF SYSTEMS: Notable for increased cough with occasional sputum production, occasional dysphagia, progressive weakness, fall last week. PHYSICAL EXAMINATION: General: Exam reveals a chronically ill-appearing, white female who appears her stated age, but is in no distress. She is currently sitting in a chair, on a nasal cannula. Vital signs: Blood pressure 146/92, heart rate 89, respiratory rate 26, oxygen saturation 98%. HEENT: Pupils are equal and reactive. Oropharynx is clear. Neck: Supple. Chest: Reveals coarse breath sounds with dullness to percussion, with E to A changes in both lung bases. Cardiac Exam: S1, S2. Abdomen: Soft without hepatosplenomegaly. Extremities: Without edema. LABORATORY DATA: White blood count on admission 20,000. White blood count this morning 16,000. Hemoglobin. 8.0 platelet count 597,000. Sodium 138, potassium 3.8, chloride 108, bicarbonate 22, BUN 16, creatinine 0.6. AST 35, ALT 56, alkaline phosphatase 224, albumin 2.2. DIAGNOSTIC STUDIES: Chest x-ray reveals bibasilar infiltrates/consolidations with marginal improvement over the last 3 days. IMPRESSION: A 68-year-old with immunosuppression due to chronic rheumatoid arthritis, who presents with bilateral pneumonia with a basilar predominance, history of aspiration pneumonia with prior open lung biopsy to document this phenomenon, history of methicillin-resistant Staphylococcus aureus cellulitis, with acute hypoxemic respiratory failure. Given the history and presentation, the patient currently has an aspiration pneumonia. RECOMMENDATIONS: 1. Continue broad-spectrum antibiotics. 2. Maintain patient an elevated/upright position. 3. Continue bronchial hygiene. 4. Anticipate modified barium swallow with clinical improvement. cc: MD Elizabeth Kent MD
[2018-10-21] MEDS: LOVENOX SUBQ SCH (16:51)
[2018-10-21] MEDS: SINGULAIR PO SCH (20:01)
[2018-10-22] MEDS: VALIUM PO PRN ×2 (00:05→15:46)
[2018-10-22] MEDS: DUONEB (A & A) INH SCH ×5 (03:18→21:17)
[2018-10-22] MEDS: MAXIPIME 1 GM in NS 50 ML IV SCH ×3 (03:48→20:50)
[2018-10-22] MEDS: NS 1,000 ML IV SCH ×3 (03:49→20:50)
[2018-10-22] MEDS: TYLENOL PO PRN ×3 (05:47→23:12)
--- NOTE | 2018-10-22 07:30 | INFECTIOUS DISEASE PROGRESS NO ---
DATE: 10/22/2018 PRESENT ILLNESS: The patient has a bibasilar pneumonia. Also, yesterday, her immunoglobulin levels came back and her IgA level was normal at 145, but her IgG level was low at 464. MEDICATIONS: The patient is in her third day of receiving both cefepime and Zyvox. PHYSICAL EXAMINATION: Vital Signs: Temperature is 98.2, pulse 98, respirations 16, blood pressure 154/58. General: This is an ill-appearing, elderly female. She is in no acute distress. HEENT: She can hear my spoken words and see near objects. She does not have any white coating on her tongue. Neck: No stiffness. Lungs: Clear to auscultation. Cardiovascular: Heart rate is regular. Extremities: Patient has a large prepatellar bursa of the left knee. As mentioned yesterday, this has been present for a long time and it actually looks better than it has for quite awhile. Neurologic: Patient is awake. She can move her extremities. There is no tremor. Bones, joints, muscles: Patient has multiple deformities of her joints due to rheumatoid arthritis. LAB AND X-RAY: IgG level was 464. IgA was normal at 145. Alkaline phosphatase was 224. Creatinine 0.6. GFR is greater than 60. CBC shows a white count of 16,290, hemoglobin 8, platelet count 597,000. ASSESSMENT AND PLAN: The patient has a bibasilar pneumonia. She also has an immunoglobulin deficiency. My plan is to continue with cefepime and Zyvox and I have ordered the patient IVIG dose of 20 g for this morning. Regarding the patient's low IgG level, I will in a few days, repeat the immunoglobulin levels to see if the IgG is in the normal range after receiving the dose of immunoglobulin and then repeat her immunoglobulin levels in 4 to 6 weeks and if the IgG level has fallen again, then I think the patient would be a candidate for monthly infusions of immunoglobulin. COMORBIDITIES: The patient has severe rheumatoid arthritis. She also is elderly. cc: MD Elizabeth Campo MD
[2018-10-22] MEDS ORDERED: GAMUNEX-C 10% IV ONE (08:00)
[2018-10-22] MEDS: FOLIC ACID PO SCH (08:46)
[2018-10-22] MEDS: ZYVOX PO SCH ×2 (08:46→20:50)
[2018-10-22] MEDS: CELEBREX PO SCH (08:46)
--- NOTE | 2018-10-22 10:01 | PROGRESS NOTE ---
DATE: 10/22/2018 SUBJECTIVE: The patient states that she is feeling a little bit better. She is very agitated that the social work and case management has bypassed her own opinion and been only negotiating with her daughter. She states that her breathing is slowly improving. OBJECTIVE: Vital signs: T-max 99. Temperature now 98.5, blood pressure 157/77. The remainder of the vital signs were not kept accurately. She is 100% saturated on 3 L nasal cannula. On physical exam, the previous coarse breath sounds and slight expiratory wheeze heard on the right side are now absent. The patient is still moderately tachypneic, had noted some edema and some dependent areas which I had not noted before. Neuropsychiatric: The patient is intact and functioning at baseline. She is in command of her faculties. ASSESSMENT AND PLAN: 1. The patient's pneumonia has been treated and addressed with IV antibiotics. She has shown signs of improvement both in exam and laboratories. She had a lab holiday today. 2. We will recheck hemoglobin in the morning. It was stable at last check. 3. We will recheck white cell count tomorrow. 4. I spoke with Dr. Dean this morning in regard to her immunoglobulin deficiency. It is likely due in part to the disease modifying agents that she is taking for the rheumatoid arthritis. 5. We will recheck transaminases in the morning. 6. I have written for physical therapy and for the ability for the patient to go and take a shower with a shower seat. 7. Bedside commode. 8. The patient was transferred out of the ICU last night due to a bed shortage. I think that she will do okay on CIC. In regard to disposition, although the patient's daughter and Case Management have made grand plans for rehab, I really do not think that the patient has any interest in doing so. I think that the block and case maker and social services technician should talk to the patient rather than the daughter, since she is in command of her faculties and can make her own decisions. I realize the difficulty that it would present to the patient and her family if she were to return to assisted living, but ultimately it is the patient's choice as long as the assisted living facility will accept her back. cc: MD Elizabeth Roman MD
[2018-10-22] MEDS: PHENERGAN IV PRN (16:20)
[2018-10-22] MEDS: SINGULAIR PO SCH (20:50)
[2018-10-22] MEDS: LOVENOX SUBQ SCH (20:50)
[2018-10-23] MEDS: NS 1,000 ML IV SCH ×2 (05:00→08:44)
[2018-10-23 05:39] LABS: BASO# 0.09 X1000 (0.0-0.2); BASO% 0.4 % (0.0-0.8); EOS# 0.56 X1000 (0.0-0.7); EOS% 2.7 % (0.0-10.0); HEMATOCRIT 25.2 % (37.0-47.0); HEMOGLOBIN 7.9 g/dL (12.0-16.0); IMM GRAN# 1.52 X1000 (0.0-0.04); IMM GRAN% 7.4 % (0.0-0.5); LYMPH# 0.88 X1000 (1.2-3.4); LYMPH% 4.3 % (20.5-51.1); MCH 27.7 PG (27-31); MCHC 31.3 g/dL (33-37); MCV 88.4 FL (81-99); MONO# 0.95 X1000 (0.11-0.59); MONO% 4.6 % (1.7-9.3); MPV 9.3 FL (7.4-10.4); NEUT# 16.62 X1000 (1.4-6.5); NEUT% 80.6 % (42.2-75.2); PLT 440 X1000 (130-400); RBC 2.85 XMIL (4.2-5.4); RDW 17.8 % (11.5-14.5); WBC 20.62 X1000 (4.8-10.8)
[2018-10-23] MEDS: MAXIPIME 1 GM in NS 50 ML IV SCH ×3 (06:00→22:03)
[2018-10-23 06:17] LABS: AGAP 11; ALB/GLOB RATIO 0.6; ALBUMIN 2.2 g/dL (3.5-5.0); ALKALINE PHOSPHATASE 275 U/L (32-104); BUN 12 mg/dL (8-22); CALCIUM 8.1 mg/dL (8.8-10.2); CHLORIDE 110 mmol/L (98-107); COSMO 282; CREATININE 0.4 mg/dL (0.5-0.9); ESTIMATED GFR > 60; GLUCOSE 80 mg/dL (70-104); GOT 45 U/L (10-30); GPT 51 U/L (10-36); POTASSIUM 4.6 mmol/L (3.5-5.1); SODIUM 142 mmol/L (136-145); TCO2 21 mmol/L (25-35); TOTAL BILIRUBIN 0.18 mg/dL (0.20-1.00); TOTAL PROTEIN 5.6 g/dL (6.3-8.3)
--- NOTE | 2018-10-23 06:35 | PULMONOLOGY PROGRESS NOTE ---
DATE: 10/22/2018 SUBJECTIVE: The patient is awake and alert. She reports she feels a little better today. She continues to have a cough, with purulent sputum production. OBJECTIVE: Vital Signs: Blood pressure 122/55, heart rate 103, respiratory rate 18, oxygen saturation 95% on 4 L per nasal cannula. HEENT: Pupils are equal and reactive. Oropharynx is clear. Neck: Supple. Chest: Reveals decreased breath sounds, with crackles in both lung bases. Cardiac: S1-S2. Abdomen: Soft, and without hepatosplenomegaly. Extremities: Reveal multiple deformities associated with immunoglobulin deficiency. LABORATORIES: Microbiology reveals no growth. White blood count 16.29, hemoglobin 8.0, platelet count 597,000 (10/21 data). IMPRESSION: A 68-year-old with immunosuppression due to chronic rheumatoid arthritis, bilateral pneumonia, consistent with aspiration pneumonia, history of methicillin-resistant Staph aureus cellulitis, acute hypoxemic respiratory failure, and immunoglobulin deficiency. RECOMMENDATIONS: 1. Continue current antibiotic regimen. 2. Agree with immunoglobulin replacement. 3. Continue bronchial hygiene. 4. Consider modified barium swallow, pending clinical course. cc: MD Elizabeth Kent MD
--- NOTE | 2018-10-23 07:54 | Diag Imaging Result Doc PS360 ---
EXAM: CHEST-2 VIEWS HISTORY: abnormal exam TECHNIQUE: Chest two views COMPARISON: 10/21/2018 FINDINGS: There are small to moderate-sized bilateral pleural effusions. There is bilateral basilar atelectasis and/or infiltrates. Slight improvement in the right lung base. No cardiomegaly. No change in the left portacatheter. No pneumothorax. IMPRESSION: Slight interval improvement Electronically signed by Dorian Guzman 10/23/2018 7:52 AM
[2018-10-23] MEDS: FOLIC ACID PO SCH ×2 (07:56→08:17)
[2018-10-23] MEDS: PHENERGAN IV PRN (07:56)
[2018-10-23] MEDS: ZYVOX PO SCH ×3 (07:56→22:03)
[2018-10-23] MEDS: TYLENOL PO PRN ×2 (07:56→14:24)
[2018-10-23] MEDS: CELEBREX PO SCH ×2 (07:56→08:17)
--- NOTE | 2018-10-23 09:19 | INFECTIOUS DISEASE PROGRESS NO ---
DATE: 10/23/2018 PRESENT ILLNESS: The patient has a bibasilar pneumonia and also an immunoglobulin deficiency of IgG. MEDICATIONS: This is the 4th day of treatment with a combination of Zyvox and cefepime. PHYSICAL EXAMINATION: Vital Signs: Temperature 98.2 degrees, pulse 82, respirations 20, blood pressure 158/62. General: This is a chronically ill-appearing, elderly female. She is in no acute distress. Head, eyes, ears, nose, and throat: She can hear my spoken words and see near objects. She does not have any white coating on her tongue. Neck: No meningismus. Lungs: Clear to auscultation. Cardiovascular: Regular heart rate. Abdomen: Soft and nontender. Extremities: The patient has a large prepatellar bursa of the left knee, which has been present for a long time and actually is getting somewhat better on its own. Neurologic : The patient is awake. She can move her extremities. There is no tremor. LAB AND X-RAY: Chest x-ray shows improvement in bibasilar infiltrate and pleural effusions. Sputum and blood cultures are negative. The alkaline phosphatase is 275. CBC shows a white count of 20,620, hemoglobin 7.9, and platelet count 440,000. Creatinine is 0.4. GFR is greater than 60. ASSESSMENT AND PLAN: The patient has bibasilar pneumonia, for which I plan to continue her current antibiotics. She has an immunoglobulin deficiency. Yesterday, when the dose of IVIg was started, the patient had a bad reaction to it. When the rate of the infusion was increased, she had vomiting, she had fever and back pain. The infusion was stopped and when the patient's symptoms had all cleared, the immunoglobulin was restarted, but at a slower rate that it was before it was raised when all the reactions happened. At the slow rate, the patient did fine with it, so I think if the patient in the future needs IVIg, it will have to be given at a slow rate and possibly consideration to be given to taking Benadryl 25 mg prior to each infusion. COMORBIDITIES: The patient has severe rheumatoid arthritis and is on immunosuppressant medications for it. She also is elderly. cc: MD Elizabeth Campo MD MTDD
--- NOTE | 2018-10-23 09:34 | PROGRESS NOTE ---
DATE: 10/23/2018 SUBJECTIVE: The patient is feeling better. We reviewed her interactions with nursing, social work, and physical therapy from yesterday. She complained of an adverse reaction to the IgG that she was given. She had a really hard shaking chill as it was administered, and vomited, but recovered soon after the infusion was complete. She also suffered from back spasms through the day and the night. OBJECTIVE: Vital signs: T-max was 98.5 degrees, temperature now 98.2, pulse rate 82, respiratory rate 18-20, blood pressure 158/62. The patient is 98% saturated on 2 L nasal cannula. General: The patient is alert, oriented, conversive, and appropriate. Even at baseline, she speaks rather breathlessly at times, but she is much more able to communicate in her usual fashion without being short of breath during that effort. She seems much more like herself and, in fact, seems to have recovered much of her respiratory status over the time from yesterday. She does relate that she has coughed up copious amounts of "stuff" and feels better as a result. Lungs: Clear to auscultation in all santos. There is no wheezing. Cardiovascular: Regular. Extremities: Stage IV rheumatoid changes noted. A little bit of dependent edema, but not much. LABORATORY DATA: White cell count 20.6, hemoglobin 7.9, hematocrit 25.2. BUN 12, creatinine 0.4. AST and ALT are both trending downward and approaching normal. The patient's alkaline phosphatase is still elevated at 275 and has gone up slightly in the last interval. ASSESSMENT AND PLAN: 1. The patient's pneumonia has been treated and addressed with intravenous antibiotics. She remains on Zyvox and cefepime. She was given IgG for low immunoglobulin count, by Dr. Dean yesterday. 2. Hemoglobin is stable. 3. White cell count has gone up. We will continue to monitor. 4. We will continue to monitor immunoglobulins on an outpatient basis. 5. Transaminases are trending down with the exception of alkaline phosphatase, which may be related to her chronic bone disease. 6. The patient performed reasonably well with physical therapy, but did not have a positive experience in interacting. She was able to walk to the doorway, although they did not have a walker for her. She was grateful that she was able to take a shower. 7. I am going to discontinue the patient's telemetry, put in a bedside commode and remove the Villegas catheter. 8. Unfortunately, the patient still requires CICU care due to the nursing ratio. I am afraid if she was on the floor with 8:1 nursing, she would be too difficult to care for because I want her helped up out of the bed and to the bedside commode with assistance. I do not trust her to do this on her own, although I am sure she would be more than willing to try. 9. In regard to the patient's disposition, I spoke with Case Management yesterday and apparently the patient and her daughter came to a compromise. The patient still wants to remain in independent living. She agreed to have sitters come in and she agreed to go to rehab for 2 weeks in order to more or less prove that she was still able to gain her feet and take care of herself. I thought this was a reasonable compromise and we will seek placement in a rehab situation for next week. 10. The patient requested to be a DNR. cc: MD Elizabeth Roman MD
[2018-10-23] MEDS: DUONEB (A & A) INH SCH ×3 (09:46→19:16)
[2018-10-23] MEDS: ROBAXIN PO PRN ×2 (11:12→19:51)
[2018-10-23] MEDS ORDERED: LASIX IV ONE (15:09)
[2018-10-23] MEDS: LOVENOX SUBQ SCH (22:03)
[2018-10-23] MEDS: SINGULAIR PO SCH (22:03)
[2018-10-23] MEDS: VALIUM PO PRN (23:20)
--- NOTE | 2018-10-23 23:58 | PULMONOLOGY PROGRESS NOTE ---
DATE: 10/23/2018 SUBJECTIVE: The patient reports she feels better. She is sitting in her chair. She has a fair cough effort. She did have an episode of emesis last evening following eating pasta. OBJECTIVE: Vital signs: Blood pressure 152/61, heart rate 84, respiratory rate 16, oxygen saturation 97% on 4 L per nasal cannula. HEENT: Pupils are equal and reactive. Oropharynx is clear. Neck: Supple. Chest: Reveals decreased breath sounds in the bases with bilateral rhonchi. Cardiac exam: S1, S2. Abdomen: Soft. Extremities: Reveal evidence of long- standing rheumatoid arthritis. LABORATORIES: Chest x-ray reveals bibasilar effusions and infiltrates with marginal improvement. White blood count 26,600, hemoglobin 7.9, platelet count 440,000. Sodium 142, potassium 4.6, chloride 110, bicarbonate 21, BUN 12, creatinine 0.4. No new microbiology data. IMPRESSION: A 68-year-old with rheumatoid arthritis, immunoglobulin deficiency , chronic immunosuppression, bilateral pneumonia, acute hypoxemic respiratory failure, and small bilateral effusions. RECOMMENDATION: 1. Continue antibiotic regimen. 2. Continue bronchial hygiene. 3. Consider modified barium swallow early next week if she does not continue to improve. 4. Discontinue IV fluids. cc: MD Elizabeth Kent MD MTDD
[2018-10-24] MEDS: ROBAXIN PO PRN ×2 (02:20→16:25)
[2018-10-24] MEDS: TYLENOL PO PRN (03:42)
[2018-10-24] MEDS: MAXIPIME 1 GM in NS 50 ML IV SCH ×3 (05:39→22:13)
[2018-10-24] MEDS: DUONEB (A & A) INH SCH ×4 (06:06→19:02)
[2018-10-24] MEDS: CELEBREX PO SCH (09:14)
[2018-10-24] MEDS: FOLIC ACID PO SCH (09:14)
[2018-10-24] MEDS: ZYVOX PO SCH ×2 (09:15→21:01)
--- NOTE | 2018-10-24 19:21 | PULMONOLOGY PROGRESS NOTE ---
DATE: 10/24/2018 SUBJECTIVE: Patient reports good urine output following the Lasix. She reports her shortness of breath has diminished today. OBJECTIVE: Intake 1420, output 2450, BP 174/69, heart rate 98, respiratory rate 18, oxygen saturation 94% on 2 L per nasal cannula.HEENT: Pupils are equal and reactive. Oropharynx is clear. Neck: Is supple. Chest: Reveals crackles in both lung bases with occasional rhonchi. Cardiac: S1-S2. Abdomen: Soft without hepatosplenomegaly. Extremities: Without edema. LABORATORIES: Repeat immunoglobulin levels revealing normal IgG level at 855 mg/dL. No chemistry or CBC today. IMPRESSION: 68-year-old with immunosuppression due to treatment for chronic rheumatoid arthritis and immunoglobulin deficiency, bilateral pneumonia, small effusions, history of methicillin- resistant Staph aureus cellulitis with acute hypoxic respiratory failure. Overall she is having slow continued improvement. Given the nature of her pneumonia, aspiration remains in the differential. RECOMMENDATIONS: 1. Continue current antibiotic regimen. 2. Continue bronchial hygiene. 3. Additional Lasix dose early tomorrow morning. 4. Follow-up chest x-ray Friday. 5. Consider modified barium swallow early next week. cc: MD Elizabeth Kent MD
[2018-10-24] MEDS: LOVENOX SUBQ SCH (21:00)
[2018-10-24] MEDS: SINGULAIR PO SCH (21:01)
[2018-10-24] MEDS: VALIUM PO PRN (22:21)
[2018-10-25] MEDS: DUONEB (A & A) INH SCH ×4 (00:05→18:44)
[2018-10-25] MEDS: PHENERGAN IV PRN ×2 (02:50→15:14)
[2018-10-25] MEDS: ROBAXIN PO PRN ×4 (02:56→20:53)
[2018-10-25] MEDS: TYLENOL PO PRN (04:32)
[2018-10-25] MEDS: MAXIPIME 1 GM in NS 50 ML IV SCH ×3 (05:32→21:44)
[2018-10-25] MEDS ORDERED: LASIX IV ONE (06:00)
[2018-10-25 06:13] LABS: AGAP 11; ALB/GLOB RATIO 0.7; ALBUMIN 2.5 g/dL (3.5-5.0); ALKALINE PHOSPHATASE 207 U/L (32-104); BUN 21 mg/dL (8-22); CALCIUM 9.3 mg/dL (8.8-10.2); CHLORIDE 104 mmol/L (98-107); COSMO 284; CREATININE 0.6 mg/dL (0.5-0.9); ESTIMATED GFR > 60; GLUCOSE 92 mg/dL (70-104); GOT 32 U/L (10-30); GPT 41 U/L (10-36); POTASSIUM 4.8 mmol/L (3.5-5.1); SODIUM 141 mmol/L (136-145); TCO2 26 mmol/L (25-35); TOTAL BILIRUBIN 0.15 mg/dL (0.20-1.00)
[2018-10-25] MEDS: FOLIC ACID PO SCH (08:34)
[2018-10-25] MEDS: ZYVOX PO SCH ×2 (08:34→20:53)
[2018-10-25] MEDS: CELEBREX PO SCH (08:34)
--- NOTE | 2018-10-25 08:38 | Diag Imaging Result Doc PS360 ---
CHEST-2 VIEWS - 10/25/2018 INDICATION: pneumonia COMPARISON: 10/23/2018 FINDINGS: There has been decrease in the bilateral pleural effusions. There are dense bilateral infiltrates in the lung bases. No pneumothorax. Stable left central line. Heart size is top normal. IMPRESSION: Decrease in the pleural effusions. Dense bilateral basilar infiltrates compatible with pneumonia. Mainly involving the lower lobes. Electronically signed by Patrick Torres 10/25/2018 8:35 AM
--- NOTE | 2018-10-25 20:10 | PULMONOLOGY PROGRESS NOTE ---
DATE: 10/25/2018 SUBJECTIVE: Patient is awake, alert and conversant. She is sitting in the bedside chair. She has some cough, but reports her shortness of breath has diminished. OBJECTIVE: Vital Signs: Patient has been afebrile for the last 24 hours. BP 145/69, heart rate 86, respiratory rate 17, oxygen saturation 93% on room air. HEENT: Pupils are equal and reactive. Oropharynx is clear. Neck: Supple. Chest: Reveals crackles and E to A changes in the bases. Cardiac: S1, S2. Abdomen: Soft, without hepatosplenomegaly. Extremities: Without edema. LABORATORIES: Chest x-ray reveals decreased infiltrates and effusions in the lung bases, but a significant amount of disease remains. Sodium 141, potassium 4.8, chloride 104, bicarbonate 26, BUN 21, creatinine 0.6. IMPRESSION: A 68-year-old with immunosuppression due to chronic treatment for rheumatoid arthritis, immunoglobulin deficiency, with bilateral pneumonia and small effusions with acute hypoxemic respiratory failure. She has a good cough effort and she continues to improve. There is some radiographic improvement, but significant burden remains. RECOMMENDATIONS: 1. Continue current antibiotic regimen. 2. Continue bronchial hygiene. 3. Consider modified barium swallow next week given the pattern of her pneumonia. cc: MD Elizabeth Kent MD
[2018-10-25] MEDS: LOVENOX SUBQ SCH (20:53)
[2018-10-25] MEDS: SINGULAIR PO SCH (20:53)
[2018-10-26] MEDS: PHENERGAN IV PRN ×2 (02:41→19:19)
[2018-10-26] MEDS: VALIUM PO PRN (02:50)
[2018-10-26] MEDS: DUONEB (A & A) INH SCH ×4 (05:36→19:00)
[2018-10-26] MEDS: MAXIPIME 1 GM in NS 50 ML IV SCH ×3 (05:38→21:22)
[2018-10-26 06:27] LABS: BASO# 0.05 X1000 (0.0-0.2); BASO% 0.5 % (0.0-0.8); EOS# 0.76 X1000 (0.0-0.7); EOS% 7.8 % (0.0-10.0); HEMATOCRIT 26.2 % (37.0-47.0); IMM GRAN# 0.39 X1000 (0.0-0.04); LYMPH# 0.99 X1000 (1.2-3.4); LYMPH% 10.1 % (20.5-51.1); MCH 27.5 PG (27-31); MCHC 30.5 g/dL (33-37); MONO# 0.91 X1000 (0.11-0.59); MONO% 9.3 % (1.7-9.3); MPV 9.1 FL (7.4-10.4); NEUT# 6.68 X1000 (1.4-6.5); NEUT% 68.3 % (42.2-75.2); PLT 426 X1000 (130-400); RBC 2.91 XMIL (4.2-5.4); WBC 9.78 X1000 (4.8-10.8)
[2018-10-26 07:15] LABS: AGAP 10; ALBUMIN 2.7 g/dL (3.5-5.0); ALKALINE PHOSPHATASE 186 U/L (32-104); BUN 27 mg/dL (8-22); CALCIUM 9.7 mg/dL (8.8-10.2); CHLORIDE 100 mmol/L (98-107); COSMO 280; CREATININE 0.6 mg/dL (0.5-0.9); ESTIMATED GFR > 60; GLUCOSE 93 mg/dL (70-104); GOT 26 U/L (10-30); GPT 36 U/L (10-36); SODIUM 138 mmol/L (136-145); TCO2 28 mmol/L (25-35); TOTAL BILIRUBIN < 0.15 mg/dL (0.20-1.00); TOTAL PROTEIN 5.4 g/dL (6.3-8.3)
--- NOTE | 2018-10-26 08:30 | INFECTIOUS DISEASE PROGRESS NO ---
DATE: 10/26/2018 PRESENT ILLNESS: The patient has a bibasilar pneumonia and also an immunoglobulin deficiency from low IgG. Today, the patient told me that her mouth is sore and when I examined it, there was erythema but no white patches. I think the patient has the beginning of oral candidiasis. MEDICATIONS: This is the 7th day of treatment with a combination of Zyvox and cefepime. PHYSICAL EXAMINATION: Vital Signs: The patient's temperature is 97.9 degrees, pulse is 96, respirations 18, blood pressure of 183/92. General: This is a chronically ill-appearing, elderly female. She has multiple changes due to rheumatoid arthritis. The patient is in no acute distress, however. Head, Eyes, Ears, Nose, and Throat: She can hear my spoken words and see near objects. Her tongue has become more erythematous and the patient states that it is painful. She thinks she is getting thrush. Neck: No stiffness. Lungs: Clear to auscultation. Cardiovascular: Heart rate is regular. Abdomen: Soft and nontender. Extremities: The patient has multiple deformities from her rheumatoid arthritis. She also has a large prepatellar bursa of the left knee which actually is getting smaller than it had been previously. Neurologic: The patient is alert. She can move her extremities. There is no tremor. LAB AND X-RAY: The repeat IgG level is normal because she received IVIG. The patient's sputum is growing yeast. The IgG level was 855. Creatinine is 0.6. GFR is greater than 60. The CBC shows a white count of 9780, hemoglobin 8, and platelet count 426,000. Chest x-ray shows bibasilar infiltrates. ASSESSMENT AND PLAN: The patient has pneumonia, an immunoglobulin deficiency, and the beginning of oral candidiasis. My plan is to continue the current antibiotics and start the patient on nystatin swish and swallow. Since the patient's repeat IgG level is in the normal range, she does not need another infusion of IVIG at this time. COMORBIDITIES: Severe rheumatoid arthritis, immunosuppressant medications, and the patient is elderly. cc: MD Elizabeth Campo MD
[2018-10-26] MEDS: CELEBREX PO SCH (09:14)
[2018-10-26] MEDS: FOLIC ACID PO SCH (09:14)
[2018-10-26] MEDS: ZYVOX PO SCH ×2 (09:14→21:22)
[2018-10-26] MEDS: MYCOSTATIN SUSP PO SCH ×4 (09:21→21:44)
[2018-10-26] MEDS: ROBAXIN PO PRN ×2 (10:57→19:23)
--- NOTE | 2018-10-26 13:56 | PROGRESS NOTE ---
DATE: 10/26/2018 SUBJECTIVE: The patient is feeling much better. She is sitting up in the chair and feeding herself. She is concerned about rehab. The patient complains that she was awakened at 2 a.m. from a sound sleep by a nurse, who demanded that she undergo a gown change and also proceeded to change her central line dressing. OBJECTIVE: Vital Signs: 98.7, 89, 17, 159/60, 92% saturated on room air. Lungs: Clear. Cardiovascular: Regular. Neurologic: The patient is alert, oriented, conversive, and appropriate. LABORATORY: White cell count is 9.7, hemoglobin is 8.0, hematocrit 26.2. CMP is grossly normal. Her alkaline phosphatase is down to 186. ASSESSMENT AND PLAN: 1. Patient's pneumonia has been adequately treated on Zyvox and cefepime. She has been given IgG, and will have followup with Dr. Dean. A discussion was had over the weekend as to whether the patient would need to be changed onto a different disease- modifying agent for her rheumatoid such as Enbrel. This decision will have to be made in conjunction with Dr. Garcia. 2. Hemoglobin is stable. 3. White cell count has returned to normal. 4. Immunoglobulin deficiency has been noted, and followup has been arranged. 5. Transaminitis has resolved. 6. Plan to change the patient to as many p.o. medications as possible. I was informed by the nursing staff this morning that a bed was available at [facility] and rehab. Every conversation I have had with the patient's daughter or the patient has mentioned [facility], so I am not sure where that referral came from. I asked nursing staff to contact Social Work and to look into that possibility. In fact, I went back into the patient's room, and she was on the phone with her daughter. I spoke directly to the daughter. She stated that the preference of both, the patient and the daughter, was [facility] and always has been. 7. Do not resuscitate level 1. cc: MD Elizabeth Roman MD MTDD
[2018-10-26] MEDS: LOVENOX SUBQ SCH (21:22)
[2018-10-26] MEDS: SINGULAIR PO SCH (21:22)
[2018-10-27] MEDS: ROBAXIN PO PRN ×2 (03:30→20:50)
[2018-10-27] MEDS: DUONEB (A & A) INH SCH ×5 (03:58→21:45)
[2018-10-27] MEDS: MAXIPIME 1 GM in NS 50 ML IV SCH ×4 (05:06→22:16)
[2018-10-27] MEDS: CELEBREX PO SCH (09:19)
[2018-10-27] MEDS: MYCOSTATIN SUSP PO SCH ×4 (09:19→22:17)
[2018-10-27] MEDS: ZYVOX PO SCH ×2 (09:19→20:41)
[2018-10-27] MEDS: FOLIC ACID PO SCH (09:23)
[2018-10-27] MEDS ORDERED: NS 250 ML ONE (09:57)
--- NOTE | 2018-10-27 10:25 | INFECTIOUS DISEASE PROGRESS NO ---
DATE: 10/27/2018 PRESENT ILLNESS: The patient has a bibasilar pneumonia, immunoglobulin deficiency, and oral candidiasis. MEDICATIONS: This is the 8th day of treatment with Zyvox and cefepime. The patient has had Mycostatin now for 4 to 5 days. PHYSICAL EXAMINATION: Vital Signs: Temperature 98.6 degrees, pulse 84, respirations 14, blood pressure 156/62. General: This is a chronically ill-appearing, elderly female. She is in no acute distress. Head, eyes, ears, nose, and throat: She can hear my spoken words and see near objects. She does not have any white coating on her tongue. Lungs: Clear to auscultation. Cardiovascular: Regular heart rate. Abdomen: Soft and nontender. Extremities: The patient has multiple joint deformities secondary to rheumatoid arthritis. The patient also has a large prepatellar bursa on the left knee, which is actually getting smaller and has been present for a long time. Neurologic: The patient is alert. She can move her extremities. There is no tremor. LAB AND X-RAY: The patient's chest x-ray on 10/25/2018 showed dense bilateral basilar infiltrates. Laboratory studies from yesterday show a CBC with a white count of 9780, hemoglobin 8, platelet count 426,000. Creatinine 0.6, GFR is greater than 60. ASSESSMENT AND PLAN: The patient has bibasilar pneumonia, an immunoglobulin deficiency, and oral candidiasis. The patient very much wants to be discharged. I have written for the following antibiotics: Cefepime 1 g intravenously every 8 hours and Zyvox 600 mg orally every 12 hours for 2 weeks. Also, I have written for a CBC with differential and creatinine to be drawn every Friday. I plan to see the patient back in the office in 2 weeks. The patient also has an immunoglobulin deficiency, for which she received intravenous immunoglobulin. Her IgG is back up to a normal value. I plan in 4 to 6 weeks to repeat the patient's immunoglobulin levels again to see if the IgG has fallen to what it was when the patient was in the hospital. If it does fall again, and given the patient's history of infections, I think she would be a candidate for immunoglobulin replacement therapy. COMORBIDITIES: Rheumatoid arthritis and immunosuppressive medications. The patient also is elderly. cc: MD Elizabeth Campo MD
[2018-10-27 10:26] LABS: INR 0.96; PROTIME 13.6 Seconds (11.0-16.0)
[2018-10-27] MEDS: PHENERGAN IV PRN ×2 (15:11→20:49)
--- NOTE | 2018-10-27 19:51 | PROGRESS NOTE ---
DATE: 10/27/2018 SUBJECTIVE: The patient has no complaints. She is anxiously awaiting to find out where her placement will be. She stated that she would like to go to [facility] or to go home. OBJECTIVE: Vital Signs: The patient is afebrile. Vital signs are stable. Lungs: Lungs are clear. Cardiovascular: Regular. ASSESSMENT AND PLAN: The patient still has dense infiltrates on chest x-ray despite her markedly clinical improvement. By the end of the day, Dr. Brandan Dean had weighed in and felt that she should continue IV antibiotics for a period of weeks due to her immunocompromised state. I could not disagree with this logic. We ordered a PICC line put in. Unfortunately, this made it impossible for her to return back to her assisted living is they were not willing to undertake this. It is my understanding that [facility] also would not undertake this PICC line or perhaps they just did not have a bed available. Multiple options were explored throughout the day with very diligent work by the social work team and by the nursing staff in trying to find placement for this patient. She eventually agreed to go to [facility] if a bed was available or LTAC in [place], which I think would actually be a good fit for her, but is questionable whether we can get her in. By the time of this had taken place it was late afternoon and although appropriate attempts were made to contact facilities, we will not be able to find an answer to where she can be placed until tomorrow at some time. Hopefully, we can have a definitive discharge plan tomorrow. cc: MD Elizabeth Roman MD MTDD
[2018-10-27] MEDS: SINGULAIR PO SCH (20:41)
[2018-10-27] MEDS: VALIUM PO PRN (20:41)
[2018-10-27] MEDS: LOVENOX SUBQ SCH (20:42)
[2018-10-27] MEDS: TYLENOL PO PRN (21:49)
--- NOTE | 2018-10-28 04:00 | PULMONOLOGY PROGRESS NOTE ---
DATE: 10/27/2018 SUBJECTIVE: The patient reports she feels better. She continues to regain some strength. She has some sputum production but it is minimal. OBJECTIVE: Vital Signs: The patient has been afebrile for the last 24 hours. BP 136/85, heart rate 108, respiratory rate 16, oxygen saturation 92% on room air. HEENT: Pupils are equal and reactive. Oropharynx is clear. Neck: Supple. Chest: Reveals crackles in both lung bases. Cardiac: S1 and S2. Abdomen: Soft without hepatosplenomegaly. Extremities: Without edema. LABORATORIES: No new laboratory data. IMPRESSION: The patient is a 68-year-old with rheumatoid arthritis and chronic immunosuppression, immunoglobulin deficiency status post replacement, bilateral pneumonia, small effusions, and acute hypoxemic respiratory failure. She continues to slowly improve. She is currently being arranged for discharge, but it has been delayed due to the need for management of her PICC line. RECOMMENDATION: 1. Continue antibiotic regimen. 2. Continue bronchial hygiene. 3. Follow up chest x-ray tomorrow before discharge. cc: MD Elizabeth Kent MD
[2018-10-28] MEDS: MAXIPIME 1 GM in NS 50 ML IV SCH ×4 (05:09→21:18)
[2018-10-28] MEDS: ROBAXIN PO PRN (05:14)
[2018-10-28] MEDS: TYLENOL PO PRN ×2 (05:49→18:35)
[2018-10-28] MEDS: VALIUM PO PRN (06:27)
[2018-10-28] MEDS: PHENERGAN IV PRN ×3 (06:27→22:29)
[2018-10-28] MEDS: FOLIC ACID PO SCH (08:22)
[2018-10-28] MEDS: CELEBREX PO SCH (08:22)
[2018-10-28] MEDS: ZYVOX PO SCH ×2 (08:22→21:18)
--- NOTE | 2018-10-28 08:35 | INFECTIOUS DISEASE PROGRESS NO ---
DATE: 10/28/2018 PRESENT ILLNESS: The patient has a bibasilar pneumonia, immunoglobulin deficiency, and oral candidiasis. MEDICATIONS: The patient has been on Zyvox and cefepime now for 9 days. I ordered mycostatin swish and swallow but there is a shortage of it. PHYSICAL EXAMINATION: Vital Signs: Temperature is 98.1 degrees, pulse 92, respirations 16, blood pressure 180/65. General: This is a chronically ill-appearing, elderly female. She is in no acute distress. Head, Eyes, Ears, Nose, and Throat: She can hear my spoken words and see near objects. She does not have any white coating of her tongue. Neck: No meningismus. Lungs: There were some bilateral rhonchi. Cardiovascular: Heart rate is regular. Abdomen: Soft and nontender. Extremities: The patient has multiple joint deformities due to rheumatoid arthritis. She also has a very large left prepatellar bursa which is not erythematous or tender. According to the patient, she has had this for a long time and it is actually smaller now than it had been. Both she and I think that it is unlikely that the bursa is infected and we are not going to proceed with any aspiration of it at this time. LAB AND X-RAY STUDIES: The patient's immunoglobulin levels show an IgG of 855 and IgA of 161. There are no new lab studies or radiographic studies. ASSESSMENT AND PLAN: The patient has a bibasilar pneumonia, oral candidiasis, and an immunoglobulin deficiency. The plan is to continue with the current antimicrobial agents. COMORBIDITIES: The comorbidities include rheumatoid arthritis and immunosuppressive medication used to treat rheumatoid arthritis. The patient also is elderly. cc: MD Elizabeth Campo MD [facility] SYSTEMJody
[2018-10-28] MEDS: MYCOSTATIN SUSP PO SCH ×4 (08:46→21:18)
[2018-10-28] MEDS: PERCOCET-5 PO PRN ×3 (09:35→19:22)
[2018-10-28] MEDS: DUONEB (A & A) INH SCH ×3 (09:48→21:00)
--- NOTE | 2018-10-28 13:43 | Diag Imaging Result Doc PS360 ---
EXAM: CHEST-2 VIEWS 10/28/2018 HISTORY: abnormal exam TECHNIQUE: PA and lateral chest COMMENT: There is ill-defined opacity in both lower lung santos which has improved slightly since 10/25/2018. The left internal jugular catheter has been removed and there is now a right PICC line with its tip in the superior vena cava. IMPRESSION: Improved bronchopneumonia. Electronically signed by John Abdul 10/28/2018 1:41 PM
--- NOTE | 2018-10-28 14:10 | DISCHARGE SUMMARY ---
ADMISSION DATE: 10/18/2018 DISCHARGE DATE: 10/28/2018 CONSULTATIONS: 1. Mark Alvarado MD. 2. Brandan Dean MD. 3. Florentin Elder MD. OPERATIVE PROCEDURES: 1. Left internal jugular central line. 2. PICC line placement in right biceps. HOSPITAL COURSE: This 68-year-old white female with a long history of rheumatoid arthritis who is on immunosuppressive therapy, presented to the emergency room with shortness of breath, hypoxemia, hypotension, tachycardia, and fever. She was found to have dense infiltrates in both lungs and was admitted with pneumonia and sepsis. The patient has been treated as an outpatient for an upper respiratory infection and was currently taking antibiotics when she was admitted. Her antibiotics were ramped up to cover staph and to broaden her gram-negative coverage. Dr. Brandan Dean was consulted after a couple of days because the patient did seem to be responding; she continued to have fevers. He recommended changing her to Zyvox and cefepime and she started to respond from a fever standpoint. She remained somewhat tachypneic for a few days and then seemed to get much better. She is intermittently tachypneic when she speaks anyway. Her lung exam improved and the previously heard right-sided rales improved through her hospital course. Dr. Alvarado had been consulted on the first day to get IV access as she has very poor veins to choose from, having been stuck so many times and with the deformities of her hands and arms associated with rheumatoid arthritis. The patient is treated by Dr. Garcia. She is on Orencia monthly infusion. This was obviously discontinued during her hospitalization and consideration for an alternative disease modifying agent are underway. Dr. Brandan Dean did further investigation and found that her immunoglobulin level was suppressed. He gave her an IgG infusion and suggested future infusions as well if her immunoglobulin level does not recover after changing disease modifying agents. The patient was anemic at presentation. She has a long-standing history of anemia, but this seemed a bit worse. Her hemoglobin dwindled down to 7.2 at one point and she was given transfusion of a single unit. Her hemoglobin remained at 8 or above for the remainder of her hospitalization and her blood pressure stabilized as well. This will need to be rechecked on a recurring and regular basis as well. Dr. Dean and I discussed the patient's vulnerabilities and he suggested 6 weeks of IV antibiotic therapy and had a PICC line placed. Her internal jugular catheter was removed without difficulty. Over the last 3 days of her admission, there were multiple issues involving placement and who would be able to administer antibiotics. On the afternoon of the an LTAC had agreed to take the patient and transfer orders were written at that time. Over those previous 3 days I spent multiple periods of time on the telephone trying to make arrangements. My staff spent a considerable amount of time on the phone as well and the overall time planning the discharge was considerable and meets the criteria for extended discharge. The patient is discharged in good condition and she had actually been doing quite well with physical therapy, even walking the halls with assistance. She will need some physical therapy as well as her IV infusions on a regular basis. Although the patient would prefer to return to her assisted living, they were unable to manage her due to the IV antibiotics and that is the primary reason why we are having to send her out. She is unable to do this on her own because of her hand deformities and she does not have 24/7 coverage to administer cefepime 3 times daily. She is discharged out on cefepime 3 times daily and Zyvox twice daily by mouth. Also during the hospitalization, the patient had difficulty with nausea and vomiting, particularly with fast infusion rates. We had given her some ondansetron and Phenergan and they sometimes helped. Slowing the rate of infusion generally was the most helpful. She also had diarrhea and orders were written for C. difficile evaluation, but this was not achieved prior to the time of discharge. The patient will need a CBC drawn inside of a week after discharge to check her anemia and white cell count. After the totality of her infusions are complete, she should be able return home to [facility]. cc: MD Elizabeth Roman MD
[2018-10-28] MEDS: ZOFRAN PO SCH ×2 (15:10→21:18)
[2018-10-28] MEDS: SINGULAIR PO SCH (21:18)
[2018-10-29] MEDS: ROBAXIN PO PRN (03:08)
[2018-10-29] MEDS: ZOFRAN PO SCH (06:01)
[2018-10-29] MEDS: MAXIPIME 1 GM in NS 50 ML IV SCH (06:01)
[2018-10-29] MEDS: PERCOCET-5 PO PRN (06:07)
[2018-10-29] MEDS: DUONEB (A & A) INH SCH (07:45)
[2018-10-29 08:16] VITALS: BP 164/59
[2018-10-29] MEDS: FOLIC ACID PO SCH (08:16)
[2018-10-29] MEDS: ZYVOX PO SCH (08:16)
[2018-10-29] MEDS: CELEBREX PO SCH (08:16)
--- NOTE | 2018-10-29 08:48 | INFECTIOUS DISEASE PROGRESS NO ---
DATE: 10/29/2018 PRESENT ILLNESS: The patient has a bibasilar pneumonia, immunoglobulin deficiency, and oral candidiasis. MEDICATIONS: The patient is on the 10th day of treatment with Zyvox and cefepime. I had previously ordered Mycostatin swish and swallow. However, there is a nationwide shortage of it. PHYSICAL EXAMINATION: Vital Signs: Temperature 98 degrees, pulse 90, respirations 17, blood pressure 141/63. General: This is a chronically ill-appearing, elderly female. She is in no acute distress. Head, eyes, ears, nose, and throat: She can hear my spoken words and see near objects. She does not have a white coating on her tongue. Neck: No stiffness. The patient's left-sided internal jugular catheter has been removed. Lungs: There were bilateral rhonchi. Cardiovascular: Heart rate is regular. Abdomen: Soft and nontender. Extremities: The patient has multiple joint deformities due to her rheumatoid arthritis. She also has a large left prepatellar bursa, which is not erythematous or tender, and has been present for a long time and it is actually getting smaller, according to the patient. The patient has a PICC in her right arm. The site is not swollen or red and. Neurologic: The patient is alert. She can move her extremities. There is no tremor. LAB AND X-RAY: The patient's chest x-ray shows improvement in the bilateral lower lung infiltrates. ASSESSMENT AND PLAN: The patient is going to long-term acute care where she will continue her antibiotic treatment. In approximately 6 weeks, I am going to repeat the patient's immunoglobulin levels and if there is a deficiency of IgG, the patient will be a candidate for regular infusions of IVIg. Also, I plan on having the patient have a repeat of her chest x-ray and also I have given her an appointment to come to my office in 6 weeks. COMORBIDITIES: Rheumatoid arthritis, immunosuppressive medication, and the patient is elderly. cc: MD Elizabeth Campo MD
== END 2018-10-29 08:40 | DRG 871 ==
LOC: SUPCPDRO → ED 11:24 → EDIPHOLD 16:31 → 4N 17:03 → ICU 10-19 02:24 → 3S 10-21 18:11
PROVIDERS: ADMIT Internal Medicine; ATTEND Internal Medicine
CPT/HCPCS: 36430; 36569; 51702; 71010; 71020; 71045; 71046; 80053; 82272; 82784; 82948; 83540; 83550; 83605; 83735; 84100; 85025; 85045; 85610; 86850; 86900; 86901; 86920; 87015; 87040; 87070; 87102; 87116; 87205; 87206; 87275; 87276; 87804; 88312; 93005; 93010; 94640; 94761; 94762; 96374; 97116; 97162; 97530; 99285; A9270; J0610; J0692; J0696; J1561; J1650; J1940; J1956; J2310; J2543; J2550; J3370; J7030; J7040; J7050; P9016; XXXXX